=== PATIENT | female | born 1940 | race Caucasian/White ===

== ENCOUNTER → 2017-04-04 | Outpatient (CLI) | payer MEDICARE, OTHER ==
[~2017-04-04] MED LIST: APAP500 PO; ASPIR 8181 MG PO; AUGMENTIN 500-1 EACH PO; AUGMENTIN 875875 MG PO; B COMPLEX1 EACH PO; BACTRIM DS TAB1 EACH; BENEFIBER1 EAC1 PO; BUMETANIDE 1 MG1 M1 PO; CALCIUM 600 +1 EAC1 PO; COLACE100 MG PO; COMPLETE M9 MG/15 ML; CRANBERRY500 M1 PO; DEMADEX20 MG PO; ED-SPAZ0.125 MG PO; FISH OIL 1,001000 M2 PO; FISH OIL 1,001000 MG PO; FLEXERIL PO; FLONASE 0.05%50 MCG NASAL; FOLIC ACID 1 MG1 MG PO; FORTICAL1 SPRAY NASAL; HYDROCHLOROTH12.5 MG PO; IBUPROFEN 800800 M1 PO; K-DUR 20 MEQ T20 MEQ PO; LEVAQUIN 500 M500 M2 PO; LEVOTHYROXIN0.112 M1 PO; LEVOTHYROXINE 0.15MG PO; MELOXICAM7.5 MG PO; METHENAMINE HIPP1 G1 PO; MIACALCIN NS; MIRALAX17 GM PO; MIRALAX255 GM; MUCINEX600 MG; NEURONTIN 300300 M1 PO; NORTRIPTYLINE H50 MG PO; PAMELOR50 MG PO; PRILOSEC 20 MG20 MG PO; PROBIOTIC1 EAC1 PO; PROPRANOLOL 1010 M1 PO; QUINAPRIL 20 MG20 MG PO; THERA-M CAPLET1 EACH PO; TOPAMAX50 MG PO; TRILEPTAL150 MG PO; ULTRAM 50MG TAB50 MG PO; UNICOMPLEX M TA1 TA1 PO; VITAMIN C120 GM; VITAMIN D2000 UNIT PO; VITAMINC500 PO; ZANTAC 150MG T150 MG PO; ZYRTEC10 M2 PO
--- NOTE | 2017-04-09 07:21 | PAINCON ---
[facility] [address] [place] [address] PAIN MANAGEMENT CONSULTATION Name: SHAYNE LEMUS Room: [facility] Woody#: [id number] Admission: 04/04/17 Attend Phys: Jose Alejandro Gregg Discharge: Date of : 41 Report #: [id number] THIS REPORT FOR: //name// CC: Chicho Godinez The patient is a 76-year-old female, prior seen in the pain clinic on 02/21/2017. We did an epidural injection at L5-S1 with about 50% overall improvement of baseline pain. She did follow up with her neurosurgeon, Dr. Dasilva. He did suggest that we proceed with a right intra-articular hip injection today to rule out right hip DJD as a possible etiology of her ongoing back, right hip and leg pain. PHYSICAL EXAMINATION: Otherwise unchanged from prior presentation. The patient notes pain as a 5-6 on a VAS. OBJECTIVE: 5 feet 4 inches, 214 pounds, BMI is 36 kilograms per meter squared. Blood pressure 131/62, pulse 72 and respiration 16. Rises from chair using armrest. Gait is tandem though modestly antalgic. Pain with weightbearing in the right leg. Pain with rotation in the right hip and modestly positive straight leg raise on the right. ASSESSMENT: Right hip DJD, lumbar radiculopathy, status post decompressive laminectomy. RECOMMENDATION: We will proceed with right hip intra-articular injection as requested. Follow up in 2 weeks to evaluate efficacy. PROCEDURE: Right hip joint injection under fluoroscopy. PROCEDURE NOTE: After written informed consent was obtained, the patient was taken to the fluoroscopy suite and placed in the supine position. After 3 minutes of surgical prep over the right hip, a skin wheal with Xylocaine was raised. A 22-gauge stylet needle was placed to contact the anterior aspect of the trochanteric neck. Negative aspiration was accomplished. Initial 1 mL of Omnipaque was injected, which showed spread outside of the joint in the muscle group. Needle was repositioned. Second injection of 1 mL of Omnipaque showed spread within the joint. This was followed with 40 mg of triamcinolone plus 2 mL of 0.5% preservative-free bupivacaine. Needle was removed, area was cleansed and Band-Aid was applied. The patient monitored for an appropriate period of time and discharged in [place] [address] PAIN MANAGEMENT CONSULTATION Name: SHAYNE LEMUS Room: [facility]#: [id number] Admission: 04/04/17 Attend Phys: Jose Alejandro Gregg Discharge: Date of : 41 Report #: [id number] Fluoroscopy time was 10 seconds. <ELECTRONICALLY SIGNED> By: Kee Godinez DO 04/09/17 0721 [id number] Nort[facility]izabeth Godinez DO /josh
== END | disposition home or self-care (01) ==
LOC: M.PC 01:41
DX: M16.11 Unilateral primary osteoarthritis, right hip (principal); M54.16 Radiculopathy, lumbar region; Z98.890 Other specified postprocedural states; Z68.36 Body mass index [BMI] 36.0-36.9, adult

== ENCOUNTER 2017-05-22 14:36 | Emergency (ER) | payer MEDICARE, OTHER ==
[~2017-05-22] VITALS: Ht 162.6 cm; Wt 90.7 kg
[~2017-05-22 14:36] MED LIST changes: -FLEXERIL PO; -LEVAQUIN 500 M500 M2 PO
[2017-05-22 15:37] LABS: ABSOLUTE BASOPHILS 0.1 thou/uL (0.0-0.2); ABSOLUTE EOSINOPHILS 0.3 thou/uL (0.0-0.7); ABSOLUTE LYMPHOCYTES 2.7 thou/uL (0.8-5.3); ABSOLUTE MONOCYTES 0.9 thou/uL (0.0-1.2); ABSOLUTE NEUTROPHILS 7.6 thou/uL (1.6-8.1); BASOPHILS 0.8 %; EOSINOPHILS 2.5 %; HEMATOCRIT 40.8 % (37.0-47.0); HEMOGLOBIN 13.7 gm/dL (12.0-15.0); LYMPHOCYTES 23.2 %; MCH 30.4 pg (26.0-34.0); MCHC 33.5 g/dL (28.0-37.0); MCV 90.7 fL (80.0-100.0); MONOCYTES 7.9 %; MPV 6.9 fl. (7.2-11.1); NUCLEATED RBCS 0 /100WBC; PLATELET COUNT* 349 thou/uL (150-400); POLYS 65.6 %; RBC 4.49 mil/uL (4.20-5.00); RDW-CV 13.4 % (10.5-14.5); WBC 11.6 thou/uL (4.0-11.0)
[2017-05-22 15:44] LABS: CALCIUM 9.1 mg/dL (8.5-10.1); CREATININE 0.7 mg/dL (0.6-1.3)
[2017-05-22 15:46] LABS: APTT 27.3 Seconds (25.0-31.3); PROTIME 10.2 Seconds (9.20-11.50)
[2017-05-22 15:48] LABS: ALBUMIN 3.2 g/dL (3.4-5.0); TOTAL BILIRUBIN 0.3 mg/dL (<0.1-1.0)
[2017-05-22 18:16] LABS: URINE BILIRUBIN NEGATIVE (Negative); URINE BLOOD TRACE (Negative); URINE CLARITY CLEAR; URINE COLOR YELLOW; URINE GLUCOSE-RANDOM NEGATIVE (Negative); URINE KETONES NEGATIVE (Negative); URINE LEUKOCYTES 2+ (Negative); URINE NITRITE POSITIVE (Negative); URINE PROTEIN NEGATIVE (Negative); URINE SPECIFIC GRAVITY <= 1.005 (1.005-1.030); URINE UROBILINOGEN 0.2 E.U./dl (0.2-1.0)
[2017-05-22 18:28] LABS: SQUAMOUS 0-3 Few /LPF (0-3); WBC CLUMPS Few (None Seen)
[2017-05-22 18:29] LABS: URINE RBC 3-10 Few /HPF (0-2)
[2017-05-22] MEDS ORDERED: LEVAQUIN 500 M500 M2 PO (18:29)
[2017-05-22 18:30] LABS: CRYSTALS None Seen /LPF (None Seen); MUCUS None Seen strn/LPF (None Seen); WAXY CAST 0-3 Few /LPF (None Seen)
[2017-05-22 18:45] VITALS: BP 174/100
[2018-01-15] MEDS ORDERED: FLEXERIL PO (14:55)
== END 2017-05-22 18:47 | disposition home or self-care (01) ==
LOC: M.ERS 14:36
PROVIDERS: Nurse Practitioner Family
DX: S20.212A Contusion of left front wall of thorax, initial encounter (principal); S80.02XA Contusion of left knee, initial encounter; S30.1XXA Contusion of abdominal wall, initial encounter; I10 Essential (primary) hypertension; K21.9 Gastro-esophageal reflux disease without esophagitis; M19.90 Unspecified osteoarthritis, unspecified site; M79.7 Fibromyalgia; E03.9 Hypothyroidism, unspecified; Z90.710 Acquired absence of both cervix and uterus; Z88.1 Allergy status to other antibiotic agents; W19.XXXA Unspecified fall, initial encounter; Y93.89 Activity, other specified; Y92.89 Other specified places as the place of occurrence of the external cause; Y99.8 Other external cause status

== ENCOUNTER → 2017-06-15 | Outpatient (CLI) | payer MEDICARE, OTHER ==
[~2017-06-15] MED LIST changes: +FLEXERIL PO; +LEVAQUIN 500 M500 M2 PO
== END ==
LOC: M.ULTRA 06-14 11:06
DX: R10.32 Left lower quadrant pain (principal); M79.604 Pain in right leg; M79.605 Pain in left leg; R60.0 Localized edema

== ENCOUNTER → 2017-10-16 | Outpatient (CLI) | payer MEDICARE, OTHER ==
--- NOTE | 2017-11-09 17:38 | PAINCON ---
[address] [address] PAIN MANAGEMENT CONSULTATION Name: MAYELASHAYNE L Room: [facility] RUTH Mckay#: [id number] Admission: 10/16/17 Attend Phys: Ibrahima Zhao MD Discharge: Date of : 41 Report #: [id number] THIS REPORT FOR: //name// CC: Chicho Zhao DATE OF SERVICE: 10/16/2017 CHIEF COMPLAINT: Low back pain and pain in the tailbone. HISTORY OF PRESENT ILLNESS: The patient is a 77-year-old female who has been followed in the pain clinic by Dr. Kee Godinez. This is my first visit with the patient. She has undergone epidural steroid injections in the past. She has gleaned greater than 50% improvement after the injections. She has been followed in the past by a neurosurgeon, Dr. Dasilva. She underwent a right intraarticular hip injection in the past. Noted benefit from that. She returns today indicating that she is having pain in the lower portion of her back that is radiating down into the back of her leg and involving her knee. It radiates into the calf. Her foot is involved as well. The right side is most problematic. There is also some discomfort in the area of her right groin. Rates her pain as 1-2 at this point. Continues to use meloxicam, Flexeril to help control pain. She does have some perception of weakness in her right leg. States that she has had some weakness since nerve damage in 1998. She has been experienced pain in the lower portion of her back, which has worsened over the last few weeks. She has had back surgery in the past with instrumentation and rods placed. She would like to proceed with treatment with epidural injection. ALLERGIES: KEFLEX, STATINS - HMG-COA REDUCTASE INHIBITORS, NITROFURANTOIN. MEDICATIONS: Vitamin C 500 mg, aspirin 81 mg chewable, calcitonin spray for osteoporosis once spray nasal at bedtime, calcium, vitamin D3 b.i.d., Zyrtec 10 mg at bedtime, cranberry 500 mg herbal supplement, docosahexaenoic acid/fish oil 1000 mg b.i.d., Colace 100 mg b.i.d., Flonase 0.05% spray, probiotic, lactobacillus, Synthroid 0.15 mg, Meloxicam 7.5 mg, multivitamin and mineral, nortriptyline 50 mg at bedtime, Prilosec 20 mg, MiraLax 17 grams, potassium 20 mEq, propranolol 10 mg for tremors, Accupril 20 mg b.i.d., Zanaflex 150 mg, Topamax for tremors, 50 mg, Demadex 100 mg daily, vitamin B complex, Benefiber powder pack daily. PAST MEDICAL HISTORY: 1. Multiple back surgeries, most recent in June 2009. 2. Hypothyroidism. 3. Hypertension. 4. Prediabetes. 5. Gastroesophageal reflux disease. 6. [place] [address] PAIN MANAGEMENT CONSULTATION Name: ALLANSHAYNE L Room: [facility] Mckay#: [id number] Admission: 10/16/17 Attend Phys: Ibrahima Zhao MD Discharge: Date of : 41 Report #: [id number] 7. Osteoporosis. 8. Arthritis of shoulders bilaterally. PAST SURGICAL HISTORY: Back surgeries in 2010, L3-L4, L4-L5 fusion, hysterectomy, back surgery, L3-L4, L4-L5 fusion. SOCIAL HISTORY: The patient used to be health and wellness manager. REVIEW OF SYSTEMS: Generally good health, swelling in the feet, constipation, joint pain, joint stiffness, joint weakness, muscle pain, back pain, difficulty walking, essential tremors. LABORATORY DATA: No new laboratory values are available at the time of our interview. PAIN CLINIC ASSESSMENT: 1. The patient states that she has osteoarthritic changes "all over." 2. Height 5 feet 4 inches, weight 211 pounds, BMI 36. 3. Vital signs: Blood pressure 144/89, heart rate 79, respiratory rate 16, room air saturation 97%, temperature 98.3. 4. Pain score 1-2. 5. Fall risk. The patient has not fallen in the last 3 months. 6. Blood thinner. The patient is not on a blood thinning medication. 7. History of hypertension. The patient is being treated for hypertension. 8. Opioid therapy greater than 6 weeks. The patient is not being treated with opioid medications. 9. Risk assessment tool. 10. Functional assessment tool. 11. Recreational drug use. The patient denies use of recreational drugs. 12. Tobacco: The patient smokes quarter pack of cigarettes and has smoked for the past 50 years. 13. Alcohol. The patient drinks some alcoholic beverages daily. PHYSICAL EXAMINATION: GENERAL: The patient is a well-developed well-nourished white female. Appears her stated age. She is alert and oriented x3. Affect is appropriate. Speech is fluent. HEAD, EYES, EARS, NOSE, AND THROAT: Normocephalic, atraumatic. Extraocular eye muscles intact. Sclerae nonicteric. Mucous membranes are moist. NECK: Without significant kyphosis, scoliosis, has upper extremity muscle strength is judged to be 4/5 for the major muscle groups in the upper extremity. Lower back, the patient has a well-healed scar in the mid portion of her low back from about L2 through the sacrum area. ABDOMEN: Nontender. HEART: Regular rate. S1, S2. EXTREMITIES: Complains of pain and discomfort in the [place] [address] PAIN MANAGEMENT CONSULTATION Name: SHAYNE LEMUS Room: [facility]#: [id number] Admission: 10/16/17 Attend Phys: Ibrahima Zhao MD Discharge: Date of : 41 Report #: [id number] weakness in the right leg. States that she has had nerve problems since surgery in 1998. The patient does have some shaking of her head. Consistent with essential tremor. Notes pain and discomfort in the right side in the middle of her back with pain in the L5-S1 distribution radiating down into her leg. IMPRESSION: 1. Lumbar radiculopathy with pain radiating down the L5-S1 nerve root distribution. 2. Multiple back surgeries, most recent in June 2009. 3. Hypothyroidism. 4. Hypertension. 5. Prediabetes. 6. Gastroesophageal reflux disease. 7. Fibromyalgia. 8. Osteoporosis. 9. Arthritis of shoulders bilaterally. RECOMMENDATIONS: We discussed treatment options with the patient. We will proceed with an epidural steroid injection. Risks and benefits of an epidural steroid injection were discussed. They include but are not limited to infection, increased muscle soreness, headaches, bleeding, no improvement, worsening of pain, possible paralysis and the patient elects to proceed. PROCEDURE NOTE: The patient was taken into the procedure area. She was assisted in getting on the examination table. A pillow was placed under her abdomen to bolster improve positioning. Fluoroscopy using anterior, posterior as well as lateral viewing were instituted. The patient's back was sterilely prepped with a Betadine solution and allowed to dry. A 17-gauge Tuohy with loss of resistance technique was then advanced in the L5-S1 area using a paramedian approach to the right. After appropriate placement, a total of 80 mg Depo-Medrol, 40 mg triamcinolone and 2 mL of 0.25% bupivacaine was injected. The patient tolerated the procedure well. There were no complications. She remained in the pain clinic for an appropriate amount of time. We would like to thank you for letting us to participate in her care. We hope she continues to improve. 11/07/2017: Report amended for demographic error. <ELECTRONICALLY SIGNED> By: Ibrahima Zhao MD 11/09/17 1738 1452 [id number]. Fred Zhao MD /[facility]
== END ==
LOC: M.PC 04:51
DX: M54.16 Radiculopathy, lumbar region (principal)

== ENCOUNTER → 2018-01-15 | Outpatient (CLI) | payer MEDICARE, OTHER ==
--- NOTE | 2018-01-16 15:35 | PAINCON ---
[address] [address] PAIN MANAGEMENT CONSULTATION Name: SHAYNE LEMUS Choco Room: [facility] Woody#: [id number] Admission: 01/15/18 Attend Phys: Ibrahima Zhao MD Discharge: Date of : 41 Report #: [id number] THIS REPORT FOR: //name// CC: Chicho Zhao DATE OF SERVICE: 01/15/2018 PRIMARY CARE PHYSICIAN: Chicho Finney MD FOLLOWUP: "The injection in the low back really helped. It got rid of some of the pain down in my hamstring." HISTORY: The patient is a 77-year-old female who has been seen in the Pain Clinic. She has undergone an epidural steroid injection. She had pain and discomfort and feels that her pain was about 80% improved after the last injection. Did have some pain and discomfort down in the hamstring. She noticed that the pain in this area improved after the injection. She has noted a recurrence of this pain in her hamstring. States that the pain had been problematic for a number of years. Does have some pain in the right leg down to the knee and down into her foot. She ambulates with use of a walker. As you may recall, she has a tremor. Denies any new bowel or bladder dysfunction after the last treatment. She feels that the Meloxicam, nortriptyline and Topamax are helpful. She would like to continue with these medications. ALLERGIES: KEFLEX, STATINS - HMG - COA REDUCTASE INHIBITORS, NITROFURANTOIN. CURRENT MEDICATIONS: Vitamin C, aspirin 81 mg chewable, calcitonin spray for osteoporosis and nasal, calcium, vitamin D3 b.i.d., Zyrtec 10 mg at bedtime, cranberry 500 mg herbal supplement, fish oil 1000 mg b.i.d., Colace 100 mg b.i.d., Flonase 0.05% spray, probiotic - lactobacillus acidophilus, Synthroid 0.15 mg, Meloxicam 7.5 mg, multivitamin, minerals, nortriptyline 50 mg at bedtime, Prilosec 20 mg, MiraLax 17 g, potassium 20 mEq, propranolol 10 mg for tremors, Accupril 20 mg b.i.d., Zanaflex 150 mg, Topamax for tremor, 50 mg, Demadex 100 mg daily, vitamin B complex, Benefiber powder daily. PAIN CLINIC ASSESSMENT/PQRS: 1. The patient states that she has osteoarthritic changes "all over." She is not being treated for rheumatoid arthritis. 2. Height 5 feet 4 inches, weight 207 pounds, BMI 35.4. 3. Blood pressure 117/70, heart rate 74, respiratory rate 16, room air saturation 97%, temperature 98.3. 4. Pain intensity 1 while sitting and 3-4 while walking. 5. Fall risk. The patient has not fallen in the last 3 months. 6. Blood thinner. The patient is not on [place] [address] PAIN MANAGEMENT CONSULTATION Name: SHAYNE LEMUS [facility] [id number] Admission: 01/15/18 Attend Phys: Ibrahima Zhao MD Discharge: Date of : 41 Report #: [id number] 7. Hypertension. The patient is being treated for hypertension. 8. Opioids greater than 6 weeks. The patient is not receiving opioid medications on a regular basis. 9. Risk assessment tool. 10. Functional assessment tool. 11. Recreational drug use. The patient denies use of recreational drugs. 12. Tobacco: The patient smokes 1/4 pack of cigarettes and smoked for the past 50 years. 13. We have discussed the benefits of smoking cessation. 14. Alcohol. The patient drinks some alcoholic beverages daily. PHYSICAL EXAMINATION: GENERAL: The patient is a well-developed, well-nourished white female. Appears her stated age. She is alert and oriented x 3. Her affect is appropriate. Speech is fluent. The patient has a tremor, which is somewhat global in nature involving all limbs and her head. HEENT: Normocephalic, atraumatic. Extraocular eye muscles intact. Sclerae nonicteric. Mucous membranes are moist. NECK: Without significant kyphosis, scoliosis. Has some upper extremity strength judged to be 4/5 for the major muscle groups in the upper extremity and the patient has a well-healed scar in the mid portion of her low back from L2 through the sacrum. ABDOMEN: Nontender. Bowel sounds present. HEART: Regular rate. S1, S2. The patient has some weakness in her left as well as the right leg. She has pain and discomfort that she describes starting in the lower portion of her back going down in the L5-S1 area and involving her hamstring on the right side. She has some SI joint pain. Has pain that radiates down into the right side of her leg into her foot. IMPRESSION: 1. Lumbar radiculopathy with pain radiating down the L5-S1 nerve root. 2. Multiple back surgeries, most recent in 06/2009. 3. Hypothyroidism. 4. Hypertension. 5. Prediabetes. 6. Gastroesophageal reflux. 7. Fibromyalgia. 8. Osteoporosis. 9. Arthritis of the hips bilaterally. 10. Tremors. RECOMMENDATIONS: We discussed treatment options with the patient. Risks and benefits of an epidural steroid injection were again reviewed. They include but are not limited to infection, increased muscle soreness, headache, bleeding, worsening of pain, no improvement in pain. Possibility of infection in the hardware area. Possibility of paralysis. At this juncture, the patient has given thought to it and decided that [place] [address] PAIN MANAGEMENT CONSULTATION Name: SHAYNE LEMUS Room: [facility]#: [id number] Admission: 01/15/18 Attend Phys: Ibrahima Zhao MD Discharge: Date of : 41 Report #: [id number] PROCEDURE NOTE: The patient was taken to the procedure area. She was assisted in getting on the examination table. A pillow was placed on her abdomen for post-strain and improvement of positioning. Fluoroscopy was used using anterior and posterior as well as lateral viewing. The patient's back was sterilely prepped with a Betadine solution on 3 occasions. This was allowed to dry. A 17-gauge Tuohy with loss of resistance technique was used to gain access to the epidural space. This area had been infiltrated with 0.25% bupivacaine using a 25-gauge needle. A medial approach toward the right lateral paraspinous area was chosen. After appropriate placement, a total of 80 mg Depo-Medrol, 40 mg triamcinolone and 2 mL of 0.25% bupivacaine was injected. The patient tolerated the procedure well. There were no complications. She remained in the Pain Clinic for an appropriate amount of time. She will follow up in the future as needed. We would like to thank you for letting us participate in her care. We hope she continues to improve. <ELECTRONICALLY SIGNED> By: Ibrahima Zhao MD 01/16/18 1535 1638 [id number]. Fred Zhao MD /PMT
== END | disposition home or self-care (01) ==
LOC: M.PC 01-08 08:22
DX: M54.16 Radiculopathy, lumbar region (principal); G89.29 Other chronic pain; I10 Essential (primary) hypertension; E03.9 Hypothyroidism, unspecified; K21.9 Gastro-esophageal reflux disease without esophagitis; M79.7 Fibromyalgia; M81.0 Age-related osteoporosis without current pathological fracture; M16.0 Bilateral primary osteoarthritis of hip; Z98.890 Other specified postprocedural states; Z79.899 Other long term (current) drug therapy; Z88.8 Allergy status to other drugs, medicaments and biological substances

== ENCOUNTER → 2018-03-26 | Outpatient (CLI) | payer MEDICARE, OTHER ==
--- NOTE | ~2018-03-26 | PAINCON ---
[address] [address] PAIN MANAGEMENT CONSULTATION Name: MAYELASHAYNE L Room: [facility] RUTH Mckay#: [id number] Admission: 03/26/18 Attend Phys: Ibrahima Zhao MD Discharge: Date of : 41 Report #: [id number] THIS REPORT FOR: //name// CC: Chicho Zhao DATE OF SERVICE: 03/26/2018 CHIEF COMPLAINT: Here for another injection. Pain has returned in the low back and down into the right leg. HISTORY: The patient is a 77-year-old female, who has been seen in the pain clinic because of lumbar radiculopathy. As you recall, she has had some problems with her low back. She has undergone instrumentation in the low back area with rods and pedicle screws. She has gleaned some benefit from epidural steroid injection in the past. She returns today indicating that her pain has increased. It involves the low back and down into the "area of her tailbone." She notes that there is pain that is radiating down to her right leg. She received greater than 50% relief after the epidural steroid injection in 01/2018. She continues to ambulate with a walker. She rates her pain as a 2/10 when she is sitting, but it becomes worse with ambulation and rises to a level of 6/10. She feels her medications of meloxicam are helpful. CURRENT MEDICATIONS: Vitamin C, aspirin 81 mg chewable, calcitonin spray for osteoporosis, calcium, vitamin D3 b.i.d., Zyrtec 10 mg at bedtime, cranberry 500 mg herbal supplement, fish oil 1000 mg b.i.d., Colace 100 mg b.i.d., Flonase 0.05% spray, probiotic, lactobacillus acidophilus; Synthroid 0.15 mg, meloxicam 7.5 mg, multivitamin, minerals, nortriptyline 50 mg at bedtime, Prilosec 20 mg, MiraLax 17 grams, potassium 20 mEq, propranolol 10 mg for tremors, Accupril 20 mg b.i.d., Zanaflex 150 mg, Topamax for tremors, 50 mg; Demadex 100 mg daily, vitamin B complex, and Benefiber powder daily. ALLERGIES: KEFLEX, STATINS, HMG-COA REDUCTASE INHIBITORS, AND NITROFURANTOIN. PAIN CLINIC ASSESSMENT AND PQRS: 1. The patient states that she has some osteoarthritic changes in the lower portion of her back as well as "all over." She is not being treated for rheumatoid arthritis. 2. Pain intensity is 6/10 with walking, 2/10 while sitting. 3. Fall risk. The patient has not fallen in the last 3 months. 4. Blood thinner. The patient is not on a blood thinning medication. 5. Hypertension. The patient is being treated for hypertension. 6. Opioids greater than 6 weeks. The patient is not receiving opioid medications on a regular basis. 7. Risk assessment tool. 8. Functional [place] [address] PAIN MANAGEMENT CONSULTATION Name: MAYELASHAYNE L Room: [facility]#: [id number] Admission: 03/26/18 Attend Phys: Ibrahima Zhao MD Discharge: Date of : 41 Report #: [id number] 9. Recreational drug use. The patient denies use of recreational drugs. 10. Tobacco: The patient smokes 1/4 pack of cigarettes per day and smoked for the last 50 years. We discussed the benefits of smoking cessation with the patient. 11. Alcohol: The patient denies use of alcoholic beverages. PHYSICAL EXAMINATION: GENERAL: The patient is a well-developed, well-nourished white female. She appears her stated age. She is alert and oriented x 3. Affect is appropriate. Speech is fluent. Height is 5 feet 4 inches, weight is 208 pounds, and BMI is 35.7. VITAL SIGNS: Blood pressure is 124/73, heart rate is 70, respiratory rate is 16, room air saturation is 95%, and temperature is 98.6. The patient has a slight tremor, somewhat global in nature involving her hands and her head. HEENT: Normocephalic, atraumatic. Extraocular eye muscles intact. Sclerae nonicteric. Mucous membranes are moist. NECK: Without adenopathy or JVD. MUSCULOSKELETAL: Without significant kyphosis, scoliosis, or lordosis. ABDOMEN: Nontender. Bowel sounds present. HEART: Regular rate. S1, S2. EXTREMITIES: The patient has some pain in her left as well as the right leg. Right leg is more problematic with pain that is radiating down the L5-S1 dermatomal distribution with numbness, weakness, and sensory changes. Also, she has a history of SI joint pain. IMPRESSION: 1. Lumbar radiculopathy with pain radiating down the L5-S1 dermatomal distribution on the right. 2. Multiple back surgeries, most recent on 06/2009. 3. Hypothyroidism. 4. Hypertension. 5. Prediabetic. 6. Gastroesophageal reflux. 7. Fibromyalgia. 8. Osteoporosis. 9. Arthritis of the hip bilaterally. 10. Tremors. RECOMMENDATIONS: We have discussed the treatment options with the patient. Risks and benefits of an epidural steroid injection were discussed. The patient has an epidural steroid injection in the low back area in the past. She has noted benefit from that. She has returned today with a desire to undergo an epidural steroid injection. Risks and benefits of the procedure were discussed. They include but are not limited to infection, worsening of pain, no improvement in pain, and the patient [place] [address] PAIN MANAGEMENT CONSULTATION Name: SHAYNE LEMUS [id number] Admission: 03/26/18 Attend Phys: Ibrahima Zhao MD Discharge: Date of : 41 Report #: [id number] PROCEDURE NOTE: The patient was taken to the procedure area. She is assisted in getting on the examination table. Her back was sterilely prepped with a Betadine solution. Fluoroscopy using anterior, posterior as well as lateral viewing were implemented. A 25-gauge needle was then advanced in the right paraspinous position. A 17-gauge Tuohy with loss of resistance technique was then used to gain access to the area on the right paracentral area. A total of 80 mg Depo-Medrol, 40 of mg triamcinolone, and 2 mL of 0.25% bupivacaine was injected. The patient tolerated the procedure well. There were no complications. She remained in the pain clinic for an appropriate amount of time. She will follow up in the future as needed. We would like to thank you for letting us to participate in her care. We hope she continues to improve. By: 1759 [id number]. Fred Zhao MD /JOON
== END | disposition home or self-care (01) ==
LOC: M.PC 09:00
DX: M54.16 Radiculopathy, lumbar region (principal); G89.29 Other chronic pain; I10 Essential (primary) hypertension; E03.9 Hypothyroidism, unspecified; K21.9 Gastro-esophageal reflux disease without esophagitis; M79.7 Fibromyalgia; M81.0 Age-related osteoporosis without current pathological fracture; M16.0 Bilateral primary osteoarthritis of hip; Z98.890 Other specified postprocedural states; Z79.899 Other long term (current) drug therapy; Z88.8 Allergy status to other drugs, medicaments and biological substances; Z79.82 Long term (current) use of aspirin

== ENCOUNTER → 2018-07-02 | Outpatient (CLI) | payer MEDICARE, OTHER ==
--- NOTE | ~2018-07-02 | PAINCON ---
[address] [address] PAIN MANAGEMENT CONSULTATION Name: ALLANSHAYNE L Room: [facility] JADA Woody#: [id number] Admission: 07/02/18 Attend Phys: Ibrahima Zhao MD Discharge: Date of : 41 Report #: [id number] THIS REPORT FOR: //name// CC: Chicho Zhao DATE OF SERVICE: 07/02/2018 CHIEF COMPLAINT: Low back pain, here for an injection. HISTORY: The patient is a 77-year-old female who has been seen in the pain clinic in the past because of lumbar radicular pain. She returns today indicating that her pain has increased. She is having pain in the lower portion of her back. She is noting pain that pain that radiates down into her right foot. She underwent an epidural steroid injection in 03/2018. She felt that that pain was beneficial for the last 3 months. She has returned today with the hopes of undergoing another epidural steroid injection to help quell the pain and discomfort that she has had. As you may recall, she has had instrumentation in the lower portion of her back with placement of pedicle screws and rods in the lower portion. She denies any bowel or bladder dysfunction. She has returned to the pain clinic with desire to undergo an epidural steroid injection because of the pain that is radiating down in the L5-S1 dermatomal distribution, more so on the right and this was improved with an injection in the past. ALLERGIES: KEFLEX, STATINS/HMG-COA REDUCTASE INHIBITORS, NITROFURANTOIN. CURRENT MEDICATIONS: 1. Vitamin D 500 mg, aspirin 81 mg chewable, calcitonin spray for osteoporosis. 2. Calcium. 3. Vitamin D3 b.i.d., Zyrtec 10 mg at bedtime, cranberry 500 mg herbal supplements, fish oil, Colace 100 mg b.i.d., Flonase 0.05% spray, probiotic lactobacillus, Synthroid 0.15 mg, Meloxicam 7.5 mg, multivitamins and minerals, propranolol 10 mg for tremors, Accupril 20 mg b.i.d., Zanaflex 150 mg, Topamax for tremors, ____ 50 mg, Demadex 100 mg daily, vitamin B complex, ____ powder daily. PAIN CLINIC ASSESSMENT/PQRS: 1. The patient has osteoarthritic changes "all over" as well as in her low back area. Height 5 feet 4 inches, weight 210 pounds, and BMI is 36. 2. Vital signs: Blood pressure 127/71, heart rate 89, respiratory rate 16, room air saturation is 94%, and temperature 97.9. 3. Pain score: 2/10. 4. Fall risk: The patient has not fallen in the last 3 months. 5. Blood thinner. The patient is not on a blood thinning medication. 6. Hypertension. The patient [place] [address] PAIN MANAGEMENT CONSULTATION Name: SHAYNE LEMUS [id number] Admission: 07/02/18 Attend Phys: Ibrahima Zhao MD Discharge: Date of : 41 Report #: [id number] 7. Opioids greater than 6 weeks. The patient is not being treated with opioid medications. 8. Functional assessment tool. 9. Recreational drug use: The patient denies use of recreational drugs. 10. Tobacco: The patient smokes quarter of a pack for the past 50 years. 11. Alcohol: The patient denies use of alcoholic beverages. PHYSICAL EXAMINATION: GENERAL: The patient is a well-developed, well-nourished white female. Appears her stated age. She is alert and oriented x 3. Affect is appropriate. Speech is fluent. HEENT: Normocephalic, atraumatic. Extraocular eye muscles intact. Sclerae are nonicteric. Mucous membranes are moist. NECK: Without adenopathy or JVD. ABDOMEN: Nontender. HEART: Regular rate. S1, S2. EXTREMITIES: The patient has complained of pain down the right leg with perception of weakness in the right leg. The patient without significant scoliosis, kyphosis or lordosis. Does have a well-healed scar down the midline portion of her back since surgery in 1998. Does have some shaking of her hands consistent with essential tremor. Pain and discomfort in the middle of her back. L5-S1 distribution, which is most problematic today. IMPRESSION: 1. Lumbar radiculopathy, L5-S1 nerve root distribution on the right. 2. Multiple back surgeries since June 2009. 3. Hypothyroidism. 4. Hypertension. 5. Prediabetes. 6. Gastroesophageal reflux. 7. Fibromyalgia. 8. Osteoporosis. 9. Arthritis of the shoulders bilaterally. RECOMMENDATIONS: We discussed treatment options with the patient. Risks and benefits of an epidural steroid injection were discussed. They include but are not limited to infection, worsening pain, no improvement in pain, nerve damage, bleeding, increased headache, paralysis and the patient elects to proceed. PROCEDURE NOTE: The patient was taken to the procedure area. She was then assisted in getting on the examination table. Her back was sterilely prepped with a Betadine solution. Fluoroscopy using anterior, posterior as well as lateral viewing were implemented. A 25-gauge needle was used in a midline approach to know what the area at the L5-S1 area on the right using a paramedian approach at L5-S1. A 17-gauge Tuohy with loss of resistance technique was used to gain access to the epidural space. There was no CSF, heme [place] [address] PAIN MANAGEMENT CONSULTATION Name: SHAYNE LEMUS Room: [facility]#: [id number] Admission: 07/02/18 Attend Phys: Ibrahima Zhao MD Discharge: Date of : 41 Report #: [id number] total of 80 mg Depo-Medrol, 40 mg triamcinolone and 2 mL of 0.25% bupivacaine was injected. The patient tolerated the procedure well. There were no complications. She will follow up in the future as needed. We would like to thank you for letting us participate in her care. We hope she continues to improve. By: [id number]. Fred Zhao MD /nt
== END | disposition home or self-care (01) ==
LOC: M.PC 04:50
DX: M54.16 Radiculopathy, lumbar region (principal); G89.29 Other chronic pain; I10 Essential (primary) hypertension; E03.9 Hypothyroidism, unspecified; K21.9 Gastro-esophageal reflux disease without esophagitis; M79.7 Fibromyalgia; M81.0 Age-related osteoporosis without current pathological fracture; M19.011 Primary osteoarthritis, right shoulder; M19.012 Primary osteoarthritis, left shoulder; F17.210 Nicotine dependence, cigarettes, uncomplicated; Z98.890 Other specified postprocedural states; Z79.899 Other long term (current) drug therapy; Z88.8 Allergy status to other drugs, medicaments and biological substances

== ENCOUNTER → 2018-11-14 | Outpatient (CLI) | payer MEDICARE, OTHER ==
[~2018-11-14] MED LIST changes: +PROTONIX 20 MG20 M1 PO; +PROTONIX 20 MG20 MG PO
--- NOTE | ~2018-11-14 | PAINCON ---
[address] [address] PAIN MANAGEMENT CONSULTATION Name: MAYELASHAYNE L Room: [facility] Woody#: [id number] Admission: 11/14/18 Attend Phys: Ibrahima Zhao MD Discharge: Date of : 41 Report #: [id number] THIS REPORT FOR: //name// CC: Chicho Zhao DATE OF SERVICE: 11/14/2018 CHIEF COMPLAINT: Low back pain down the back of the legs. HISTORY: The patient is a 78-year-old female who has been seen in the pain clinic in the past because of lumbar radiculopathy. 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 She has had pedicle screws as well as rods placed in her low back area. She returns today with a pain score of 7/10. Notes that the pain is radiating down into her legs, right side more so than the left. She describes it as severe low back pain, which makes it difficult for her to stand on her feet for a prolonged period of time. She found the injections to be helpful in the past. Notes that there is some severe pressure with standing. Rates her pain while sitting as a 1/10. It can rise to the level of 7-8 when she is standing or with activity. Feels that the tramadol medications and her muscle relaxant are helpful. She would like to have another epidural injection given that she has gleaned benefits from it in the past and would like to that improvement. ALLERGIES: KEFLEX, STATIN, HMG-CO REDUCTASE INHIBITORS, AND NITROFURANTOIN. CURRENT MEDICATIONS: Vitamin C 500 mg, aspirin 81 mg, calcitonin spray for osteoarthritis nasal, vitamin D3/calcium carbonate b.i.d., Zyrtec 10 mg, vitamin D3 2000 units daily, cranberry 500 mg herbal supplement, Flexeril 10 mg p.r.n. spasms t.i.d., fish oil 1000 mg, Colace 100 mg b.i.d., Flonase 0.05% nasal spray, probiotic, lactobacillus, Synthroid 0.15 mg, Meloxicam 7.5 mg b.i.d., multivitamin, nortriptyline 50 mg, Protonix 20 mg, MiraLax 17 grams, propranolol 10 mg, Accupril 20 mg, Zantac 150 mg, Topamax for tremors, B complex vitamin supplement, Benefiber. PAIN CLINIC ASSESSMENT/PQRS: 1. The patient has osteoarthritic changes "all over." 2. The patient has osteoarthritic changes involving her low back. 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 3. Height 5 feet 4 inches, weight 207 pounds, BMI is 35. 4. Vital signs: Blood pressure 114/68, heart rate 84, respiratory rate 16, room air saturation 94. Temperature 98.1. 5. Pain intensity score 7-8 depending on activity. 6. Fall risk. The patient has not fallen in the last 3 months. 7. Blood thinner. The patient is not on a [place] [address] PAIN MANAGEMENT CONSULTATION Name: SHAYNE LEMUS Room: [facility]#: [id number] Admission: 11/14/18 Attend Phys: Ibrahima Zhao MD Discharge: Date of : 41 Report #: [id number] 8. Hypertension. The patient is being treated for hypertension. 9. Opioids greater than 6 weeks. The patient receives her medication from one source the pain clinic. 10. Risk assessment tool. 11. Recreational drug use. The patient denies use of recreational drugs. 12. Tobacco: The patient smokes 1/4 of pack of cigarettes for the past 50 years. 13. Alcohol. The patient denies use of alcoholic beverages. PHYSICAL EXAMINATION: GENERAL: The patient is a well-developed, well-nourished white female. Appears her stated age. She is alert and oriented x 3. Her affect is appropriate. Speech is fluent. HEENT: Normocephalic, atraumatic. Extraocular eye muscles intact. Sclerae nonicteric. Mucous membranes are moist. NECK: Without adenopathy or JVD. ABDOMEN: Nontender. HEART: Regular rate. EXTREMITIES: Upper extremity muscle strength judged to be 5-/5 for the major muscle groups. The patient complains of some perceived weakness involving her right and left leg. Notes there is pain that is radiating down into the right side more so than the left. The patient states that she is unable to stand on her feet for a long period noted improvement in pain after the epidural steroid injection in the past. Muscle strength in the lower extremity judged to be 4+/5 for the major muscle groups in the lower extremity. The patient walks with a walker. IMPRESSION: 1. Lumbar radiculopathy with L5-S1 dermatomal distribution affecting the legs bilaterally, right more than left. 2. Multiple back surgeries since 06/2009. 3. Hypothyroidism. 4. Hypertension. 5. Prediabetes. 6. Gastroesophageal reflux. 7. Fibromyalgia. 8. Osteoporosis. 9. Arthritis of the shoulders bilaterally. RECOMMENDATIONS: We discussed treatment options with the patient. Risks and benefits of an epidural steroid injection were discussed. Possible complications of the procedure, which could include but are not limited to infection, worsening of pain, no improvement in pain were discussed and the patient elects to proceed. PROCEDURE NOTE: The patient was assisted in getting [place] [address] PAIN MANAGEMENT CONSULTATION Name: SHAYNE LEMUS Room: [facility]#: [id number] Admission: 11/14/18 Attend Phys: Ibrahima Zhao MD Discharge: Date of : 41 Report #: [id number] Her back was sterilely prepped with Betadine. A pillow had been placed under the abdomen to bolster and improve positioning. Fluoroscopy was used to identify the L5-S1 area. A 0.25% bupivacaine was infiltrated into the midline area of L5-S1. A total of 3 mL of 0.5% bupivacaine was infiltrated. A 17-gauge Tuohy with loss of resistance technique was used to gain access to the epidural space. There was no CSF, heme, or paresthesia. Total of 80 mg Depo-Medrol, 40 mg triamcinolone, and 2 mL of 0.25% bupivacaine was injected. The patient tolerated the procedure well. There were no complications. She remained in the Pain Clinic for an appropriate amount of time. She will call us if she has any concerns. We would like to thank you for letting us participate in her care. We hope she continues to improve. By: [id number]. MD LAUREL Mcknight
== END | disposition home or self-care (01) ==
LOC: M.PC 05:24
DX: M54.16 Radiculopathy, lumbar region (principal); G89.29 Other chronic pain; M96.1 Postlaminectomy syndrome, not elsewhere classified; I10 Essential (primary) hypertension; E03.9 Hypothyroidism, unspecified; K21.9 Gastro-esophageal reflux disease without esophagitis; M79.7 Fibromyalgia; M81.0 Age-related osteoporosis without current pathological fracture; M19.011 Primary osteoarthritis, right shoulder; M19.012 Primary osteoarthritis, left shoulder; Z79.899 Other long term (current) drug therapy; Z98.890 Other specified postprocedural states; Z88.8 Allergy status to other drugs, medicaments and biological substances; Z79.82 Long term (current) use of aspirin

== ENCOUNTER → 2019-04-15 | Outpatient (CLI) | payer MEDICARE, OTHER ==
--- NOTE | 2019-04-18 08:24 | PAINCON ---
[address] [address] PAIN MANAGEMENT CONSULTATION Name: SHAYNE LEMUS Choco [id number] Admission: 04/15/19 Attend Phys: Ibrahima Zhao MD Discharge: Date of : 41 Report #: [id number] THIS REPORT FOR: //name// cc: Chicho Finney MD, Dean L. MD ~ THIS REPORT FOR: //name// CC: Chicho Zhao DATE OF SERVICE: 04/15/2019 CHIEF COMPLAINT: "Pain in the low back area with pain going down into my legs." HISTORY: The patient is a 78-year-old female who has been seen in the pain clinic because of lumbar radiculopathy. She has had back surgeries. She has rods, screws and they have been placed in her lower lumbar area. She is now experiencing pain that radiates down into her low back down into her right hip and down the posterior portion of her right leg on the back side. Notes that the pain is constant. 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 She feels that her pain is about 75% improved with her current medical regimen of tramadol and Flexeril. Rates her pain as a 0 when sitting. Notes that the pain can increase to 8 to 10 when she is standing. She would like to proceed with epidural steroid injection. Injections in the low back area in the past were helpful. ALLERGIES: KEFLEX, STATINS, HMG-COA REDUCTASE INHIBITORS, NITROFURANTOIN. CURRENT MEDICATIONS: Vitamin C 500 mg, aspirin 81 mg, calcitonin spray for osteoarthritis nasal, vitamin D3/calcium carbonate b.i.d., Zyrtec 10 mg, vitamin D3 2000 units daily, cranberry 500 mg herbal supplement, Flexeril 10 mg p.r.n., spasms t.i.d., fish oil 1000 mg, Colace 100 mg b.i.d., Flonase 0.5% nasal spray, probiotic, lactobacillus, Synthroid 0.1 mg, Meloxicam 7.5 mg b.i.d., multivitamins, nortriptyline 50 mg, Protonix 20 mg, MiraLax 17 grams, propranolol 10 mg, Accupril 20 mg, Zantac 150 mg, Topamax for tremors, B complex, vitamin supplement, Benefiber. PAIN CLINIC ASSESSMENT AND PQRS: 1. The patient has some osteoarthritic changes all over. 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 She has arthritic changes in the low back area with rods and screws in the lower portion of her back. 2. Height 5 feet 4 inches, weight 210 pounds, BMI is 36.2. 3. Vital Signs: Blood pressure 101/58, heart rate 68, respiratory rate 16, room air saturation 97%. 4. Temperature was 97.8, [facility] [address] [place] [address] PAIN MANAGEMENT CONSULTATION Name: SHAYNE LEMUS Room: [facility]#: [id number] Admission: 04/15/19 Attend Phys: Ibrahima Zhao MD Discharge: Date of : 41 Report #: [id number] 5. Pain intensity 0 while sitting 8-9 while standing. 6. Fall history: The patient has not fallen in the last 3 months. 7. Blood thinner. The patient is not on a blood thinning medication. 8. Hypertension. The patient is being treated for hypertension. 9. Opioids greater than 6 weeks. The patient receives medication from one source the pain clinic. 10. Risk assessment tool, low for opioid use. 11. Recreational drugs. The patient denies use of recreational drugs. 12. Tobacco: The patient smokes 1/4 pack of cigarettes per day, has for the last 50 years. 13. Alcohol: The patient denies use of alcoholic beverages. PHYSICAL EXAMINATION: GENERAL: The patient is a well-developed, well-nourished white female. Appears her stated age. She is alert and oriented x 3. Her affect is appropriate. Speech is fluent. HEENT: Normocephalic, atraumatic. Extraocular eye muscles intact. Sclerae nonicteric. Mucous membranes are moist. NECK: Without adenopathy or JVD. ABDOMEN: Nontender. HEART: Regular rate. MUSCULOSKELETAL: Upper extremity muscle strength judged to be 5-/5 for the major muscle groups in the upper extremity. The patient with weakness in her left and the right leg, need some assistance in going from the wheelchair she is into the examination table. The patient shows signs of movements, which are characteristic in the neck and hand areas of Parkinson's disease. IMPRESSION: 1. Lumbar radiculopathy at L5-S1 dermatomal distribution affecting the legs bilaterally, more on the right today than the left. 2. Multiple back surgeries since 2009. 3. Hypothyroidism. 4. Hypertension. 5. Prediabetes. 6. Gastroesophageal reflux. 7. Fibromyalgia. 8. Osteoporosis. 9. Arthritis of the shoulders bilaterally. RECOMMENDATIONS: We discussed treatment options with the patient. Risks and benefits of an epidural steroid injection were again discussed. They include but are not limited to infection, worsening pain, no improvement in pain, nerve damage and the patient elects to proceed. PROCEDURE NOTE: The patient was taken to the procedure area. She was then assisted in getting on the examination table. [place] [address] PAIN MANAGEMENT CONSULTATION Name: MAYELASHAYNE L Room: [facility]#: [id number] Admission: 04/15/19 Attend Phys: Ibrahima Zhao MD Discharge: Date of : 41 Report #: [id number] with a Betadine solution in the lumbar area. A 0.25% bupivacaine was injected at the L5-S1 interspace. There was no CSF, heme or paresthesia after a 17-gauge Tuohy with loss of resistance technique was used to gain access to the epidural space. A total of 80 mg Depo-Medrol, 40 mg triamcinolone and 2 mL of 0.25% bupivacaine was injected. The patient tolerated the procedure well. There were no complications. She remained in the Pain Clinic for an appropriate amount of time. She will follow up in the future as needed. We would like to thank you for letting us participate in her care. We hope she continues to improve. <ELECTRONICALLY SIGNED> By: Ibrahima Zhao MD 04/18/19 0824 [id number]. Fred Zhao MD /nt
== END | disposition home or self-care (01) ==
LOC: M.PC 11:50
DX: M54.16 Radiculopathy, lumbar region (principal); G89.29 Other chronic pain; I10 Essential (primary) hypertension; E03.9 Hypothyroidism, unspecified; K21.9 Gastro-esophageal reflux disease without esophagitis; M79.7 Fibromyalgia; M19.011 Primary osteoarthritis, right shoulder; M19.012 Primary osteoarthritis, left shoulder; M81.0 Age-related osteoporosis without current pathological fracture; F17.210 Nicotine dependence, cigarettes, uncomplicated; Z98.890 Other specified postprocedural states; Z79.899 Other long term (current) drug therapy; Z88.8 Allergy status to other drugs, medicaments and biological substances

== ENCOUNTER → 2020-10-04 | Outpatient (CLI) | payer MEDICARE, OTHER ==
--- NOTE | 2020-10-04 15:28 | 2DMMODE ---
[place] [address] 2 D/M-MODE ECHOCARDIOGRAM Name: MAYELASHAYNE L Room: [facility]#: [id number] Admission: 10/04/20 Attend Phys: Kemal Ojeda, Discharge: Date of : 42 Date of Service: 10/04/20 1528 Report #: [id number] THIS REPORT FOR: cc: Stuart Ospina MD, Matthew W. MD Blick, David R. MD [facility] ~ APPROVED REPORT Study performed: 10/04/2020 14:01:14 EXAM: Comprehensive 2D, Doppler, and color-flow Echocardiogram Patient Location: Out-Patient BSA: 1.95 HR: 68 bpm BP: 120/80 mmHg Other Information Study Quality: Good Indications Peripheral Edema Hypertension/HDD 2D Dimensions IVSd: 8.37 (7-11mm) LVOT Diam: 19.94 (18-24mm) LVDd: 47.92 mm PWd: 9.23 (7-11mm) Ascending Ao: 35.72 (22-36mm) LVDs: 28.83 (25-40mm) Aortic Root: 29.46 mm Volumes Left Atrial Volume (Systole) LA ESV Index: 21.70 mL/m2 Aortic Valve AoV Peak Collin.: 1.78 m/s AO Peak Gr.: 12.74 mmHg LVOT Max P.79 mmHg AO Mean Gr.: 6.90 mmHg LVOT Mean P.38 mmHg LVOT Max V: 1.56 m/s AO V2 VTI: 33.85 cm LVOT Mean V: 0.94 m/s GERMAINE (VTI): 3.41 cm2 LVOT V1 VTI: 37.00 [place] [address] 2 D/M-MODE ECHOCARDIOGRAM Name: SHAYNE LEMUS Room: [facility] Woody#: [id number] Admission: 10/04/20 Attend Phys: Kemal Ojeda, Discharge: Date of : 41 Date of Service: 10/04/20 1528 Report #: [id number] E/A Ratio: 1.01 MV Decel. Time: 265.21 ms MV E Max Collin.: 1.06 m/s MV PHT: 76.91 ms MVA (PHT): 2.86 cm2 TDI E/Lateral E': 13.25 E/Medial E': 8.83 Medial E' Collin.: 0.12 m/s Lateral E' Collin.: 0.08 m/s Pulmonary Valve PV Peak Collin.: 0.93 m/s PV Peak Gr.: 3.45 mmHg Tricuspid Valve RAP Estimate: 5.00 mmHg TR Peak Gr.: 21.12 mmHg RVSP: 26.12 mmHg PA Pressure: 26.12 mmHg Left Ventricle The left ventricle is normal size. There is normal LV segmental wall motion. There is normal left ventricular wall thickness. Left ventricular systolic function is normal. The left ventricular ejection fraction is within the normal range. LVEF is 55-60%. The left ventricular diastolic function is normal. Right Ventricle The right ventricle is normal size. The right ventricular systolic function is normal. Atria The left atrium size is normal. The right atrium size is normal. Aortic Valve Mild aortic valve sclerosis. No aortic regurgitation is present. There is no aortic valvular stenosis. Mitral Valve Moderate mitral annular calcification. The mitral valve is normal in structure. Mild mitral regurgitation. No evidence of mitral valve stenosis. Tricuspid Valve The tricuspid valve is normal in structure. Mild [place]icus[place] [address] 2 D/M-MODE ECHOCARDIOGRAM Name: JULI LEMUSYUE Wilhelm Room: [facility]#: [id number] Admission: 10/04/20 Attend Phys: Kemal Ojeda, Discharge: Date of : 42 Date of Service: 10/04/20 1528 Report #: [id number] Pulmonic Valve The pulmonary valve is normal in structure. Mild pulmonic regurgitation. Great Vessels The aortic root is normal in size. IVC is normal in size and collapses >50% with inspiration. Pericardium There is no pericardial effusion. <Conclusion> LVEF is 55-60%. Mild aortic valve sclerosis. Mild mitral regurgitation. <ELECTRONICALLY SIGNED> By: Kelby Vivar MD, [facility] 10/04/20 1528 1528 1528 Kelby Vivar MD, FAC /INF
== END ==
LOC: M.CRD 09-29 11:15
PROVIDERS: ATTEND Internal Medicine Cardiovascular Disease
DX: I08.8 Other rheumatic multiple valve diseases (principal); R60.0 Localized edema; I10 Essential (primary) hypertension; R55 Syncope and collapse

== ENCOUNTER 2021-04-09 22:34 | Emergency (ER) | payer MEDICARE, OTHER ==
[~2021-04-09] VITALS: Ht 160 cm; Wt 90.7 kg
[2021-04-10] MEDS ORDERED: OXYCODONE HCL 55 MG PO (00:18)
[2021-04-10] MEDS ORDERED: ZOFRAN ODT4 MG PO (00:18)
[2021-04-10] MEDS ORDERED: OTHER MISCELL (00:21)
[2021-04-10 00:35] VITALS: BP 143/75
[2021-04-10] MEDS ORDERED: TRAMADOL 50 MG50 MG PO (00:35)
== END 2021-04-10 00:35 | disposition home or self-care (01) ==
LOC: M.ERS 22:34
DX: S42.214A Unspecified nondisplaced fracture of surgical neck of right humerus, initial encounter for closed fracture (principal); I10 Essential (primary) hypertension; K21.9 Gastro-esophageal reflux disease without esophagitis; M79.7 Fibromyalgia; M81.0 Age-related osteoporosis without current pathological fracture; Z98.890 Other specified postprocedural states; Z90.710 Acquired absence of both cervix and uterus; Z79.899 Other long term (current) drug therapy; Z79.82 Long term (current) use of aspirin; Z88.1 Allergy status to other antibiotic agents; Z88.8 Allergy status to other drugs, medicaments and biological substances; W19.XXXA Unspecified fall, initial encounter; Y93.89 Activity, other specified; Y92.89 Other specified places as the place of occurrence of the external cause; Y99.8 Other external cause status